=== PATIENT | female | born 1995 | race African-American/Black ===

== ENCOUNTER 2023-01-18 22:55 | Emergency (ER) | payer OTHER ==
[2023-01-18 23:05] VITALS: BP 110/69; PULSE 83; RESP 18; TEMP 98.3; BMI 21.2
[2023-01-19] MEDS ORDERED: AZITHROMYCIN 250 MG TABLET PO ONE (00:34)
[2023-01-19] MEDS ORDERED: KETOROLAC TROMETHAMINE 30 MG/1 ML VIAL IM ONE (00:34)
[2023-01-19] MEDS ORDERED: AZITHROMYCIN 500 MG TABLET ONE (00:44)
[2023-01-19] MEDS ORDERED: KETOROLAC TROMETHAMINE 30 MG/1 ML VIAL ONE (00:44)
== END 2023-01-19 00:50 | disposition home or self-care (01) ==
LOC: JERFT 22:55
DX: J03.80 Acute tonsillitis due to other specified organisms (principal); J02.9 Acute pharyngitis, unspecified; R50.9 Fever, unspecified; R13.10 Dysphagia, unspecified; Z20.822 Contact with and (suspected) exposure to COVID-19
CPT/HCPCS: 0241U-QW; 87651; 99283-25

== ENCOUNTER 2023-02-01 01:13 | Emergency (ER) | payer OTHER ==
[2023-02-01 01:20] VITALS: BP 113/78; PULSE 79; RESP 18; TEMP 97.8; BMI 21.9
[2023-02-01] MEDS ORDERED: ACETAMINOPHEN 325 MG TABLET (FP) PO ONE (02:16)
[2023-02-01] MEDS ORDERED: KETOROLAC TROMETHAMINE 30 MG/1 ML VIAL IM ONE (02:16)
[2023-02-01] MEDS ORDERED: AMOX TR/POT CLAV 875MG/125MG TABLETS (FP) PO ONE (02:17)
[2023-02-01] MEDS ORDERED: ACETAMINOPHEN 325 MG TABLET (FP) ONE (02:22)
[2023-02-01] MEDS ORDERED: KETOROLAC TROMETHAMINE 30 MG/1 ML VIAL ONE (02:22)
[2023-02-01] MEDS ORDERED: AMOX TR/POT CLAV 875MG/125MG TABLETS (FP) ONE (02:22)
== END 2023-02-01 03:21 | disposition home or self-care (01) ==
LOC: JER 01:13
PROC: 3E0233Z Introduction of Anti-inflammatory into Muscle, Percutaneous Approach (ICD-10-PCS; principal; 2023-02-01)
DX: K03.81 Cracked tooth (principal); K08.89 Other specified disorders of teeth and supporting structures
CPT/HCPCS: 96372; 99284-25

== ENCOUNTER 2023-03-28 08:59 | Emergency (ER) | payer OTHER ==
[2023-03-28 09:10] VITALS: BP 107/69; RESP 18; TEMP 98.8; BMI 21.9
[2023-03-28 09:31] VITALS: PULSE 88
== END 2023-03-28 10:45 | disposition home or self-care (01) ==
LOC: JERFT 08:59
DX: M79.10 Myalgia, unspecified site (principal); R09.81 Nasal congestion; R63.0 Anorexia; R50.9 Fever, unspecified; Z20.822 Contact with and (suspected) exposure to COVID-19
CPT/HCPCS: 0241U-QW; 99283-25

== ENCOUNTER 2023-06-04 08:38 | Emergency (ER) | payer OTHER ==
[2023-06-04 08:43] VITALS: BP 95/60; PULSE 80; RESP 18; TEMP 98; BMI 21.0
== END 2023-06-04 10:12 | disposition home or self-care (01) ==
LOC: JERFT 08:38
DX: R09.81 Nasal congestion (principal); R05.9 Cough, unspecified; J00 Acute nasopharyngitis [common cold]; Z20.822 Contact with and (suspected) exposure to COVID-19
CPT/HCPCS: 0241U-QW; 99283-25

== ENCOUNTER 2023-06-13 21:04 | Emergency (ER) | payer SELFPAY ==
[2023-06-13 21:08] VITALS: BP 110/64; PULSE 86; RESP 18; TEMP 98.3; BMI 21.9
== END 2023-06-13 22:01 | disposition home or self-care (01) ==
LOC: JER 21:04 → JERFT 21:04
DX: R19.7 Diarrhea, unspecified (principal)
CPT/HCPCS: 99283-25